=== PATIENT | female | born 1955 | race Caucasian/White ===

== ENCOUNTER 2021-12-30 14:14 | Emergency (ER) | payer BC, MEDICARE ==
[~2021-12-30] VITALS: Ht 157 cm; Wt 108.0 kg
[~2021-12-30 14:14] MED LIST: ANTI-DIARRHEAL PO; CRAN1CAP7 PO; DICY10CA12 PO; GLIM2TAB PO; LOPE2CAP PO; MELO-195 PO; NPH,100V8 SC; OMEP20TA2 PO; OXYC-199 PO; PARO10TA2 PO; PRAV40TA PO; SITA1TAB6 PO; TRIA1TAB5 PO
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
[2021-12-30 15:07] LABS: ALBUMIN 2.4 GM/DL (3.2-4.5)
[2021-12-30 15:08] LABS: POTASSIUM 4.4 MMOL/L (3.6-5.0)
[2021-12-30 15:09] LABS: CALCIUM 7.8 MG/DL (8.5-10.1); HEMOGLOBIN 9.1 g/dL (11.5-16.0); NEUTROPHILS # (AUTO) 0.5 X 10^3 (1.8-7.8)
[2021-12-30 15:10] LABS: TOTAL PROTEIN 5.9 GM/DL (6.4-8.2)
[2021-12-30 15:11] LABS: BASOPHILS % (AUTO) 1 % (0-10); EOSINOPHILS % (AUTO) 3 % (0-10); HEMATOCRIT 30 % (35-52); LYMPHOCYTES # (AUTO) 0.7 X 10^3 (1.0-4.0); LYMPHOCYTES % (AUTO) 41 % (12-44); MEAN CORPUSCULAR HEMOGLOBIN 25 pg (25-34); MEAN CORPUSCULAR HGB CONC 30 g/dL (32-36); MEAN CORPUSCULAR VOLUME 83 fL (80-99); MONOCYTES # (AUTO) 0.4 X 10^3 (0.0-1.0); MONOCYTES % (AUTO) 25 % (0-12); NEUTROPHILS % (AUTO) 30 % (42-75); PLATELET COUNT 48 10^3/uL (130-400); WHITE BLOOD COUNT 1.6 10^3/uL (4.3-11.0)
[2021-12-30 15:12] LABS: BILIRUBIN,TOTAL 1.1 MG/DL (0.1-1.0)
[2021-12-30 15:13] LABS: CREATININE SERUM 0.98 MG/DL (0.60-1.30)
[2021-12-30 15:15] LABS: INR 1.5 (0.8-1.4); PROTHROMBIN TIME PATIENT 18.6 SEC (12.2-14.7)
[2021-12-30 15:44] LABS: BAND NEUTROPHILS 0 %; EOSINOPHILS % (MANUAL) 4 %; LYMPHOCYTES % (MANUAL) 5 %; MONOCYTES % (MANUAL) 15 %; NEUTROPHILS % (MANUAL) 26 %
[2021-12-30 15:45] LABS: ANISOCYTOSIS MARKED; BASOPHILS % (MANUAL) 0 %; ELLIPT/OVALOCYTES SLIGHT; HYPOCHROMASIA SLIGHT
--- NOTE | 2021-12-30 15:55 | Diagnostic Imaging Report ---
INDICATION: Shortness of breath COMPARISON made with 08/03/2013 Heart and mediastinal silhouette are normal in appearance. The lungs are clear. There is no pneumothorax or pleural fluid. There is poor inspiration. IMPRESSION: Poor inspiration with no acute process in the chest. Dictated by: Dictated on workstation # [id number]
[2021-12-30] MEDS ORDERED: POTA-53 PO (17:15)
[2021-12-30 17:32] VITALS: BP 111/49
== END 2021-12-30 17:33 | disposition home or self-care (01) ==
LOC: EDUNIT# 14:14 → ER 14:16
DX: K75.81 Nonalcoholic steatohepatitis (NASH) (principal); D72.819 Decreased white blood cell count, unspecified; D69.6 Thrombocytopenia, unspecified; R60.9 Edema, unspecified; K74.69 Other cirrhosis of liver; E11.9 Type 2 diabetes mellitus without complications; E66.9 Obesity, unspecified; Z87.891 Personal history of nicotine dependence; Z68.41 Body mass index [BMI] 40.0-44.9, adult; Z79.4 Long term (current) use of insulin
CPT/HCPCS: 36415; 71045; 80053; 83880; 85007; 85027; 85610; 85730; 93005

== ENCOUNTER 2022-02-03 17:29 | Emergency (ER) | payer MEDICARE ==
[~2022-02-03] VITALS: Ht 157.5 cm; Wt 108.8 kg
[~2022-02-03 17:29] MED LIST changes: +POTA-53 PO
[2022-02-03] MEDS ORDERED: LIDOCAINE UROJET 2% GEL 10 ML PKG TOP ONE (18:15)
[2022-02-03 18:21] LABS: BASOPHILS % (AUTO) 1 % (0-10); HEMOGLOBIN 9.2 g/dL (11.5-16.0); NEUTROPHILS # (AUTO) 0.5 10^3/uL (1.8-7.8); NEUTROPHILS % (AUTO) 30 % (42-75)
[2022-02-03 18:23] LABS: EOSINOPHILS # (AUTO) 0.1 10^3/uL (0.0-0.3); EOSINOPHILS % (AUTO) 4 % (0-10); HEMATOCRIT 30 % (35-52); LYMPHOCYTES # (AUTO) 0.7 10^3/uL (1.0-4.0); LYMPHOCYTES % (AUTO) 41 % (12-44); MEAN CORPUSCULAR HEMOGLOBIN 26 pg (25-34); MEAN CORPUSCULAR HGB CONC 31 g/dL (32-36); MEAN CORPUSCULAR VOLUME 85 fL (80-99); MEAN PLATELET VOLUME 12.5 fL (9.0-12.2); MONOCYTES # (AUTO) 0.4 10^3/uL (0.0-1.0); MONOCYTES % (AUTO) 23 % (0-12); WHITE BLOOD COUNT 1.6 10^3/uL (4.3-11.0)
[2022-02-03 18:26] LABS: ALBUMIN 2.6 GM/DL (3.2-4.5); PLATELET COUNT 37 10^3/uL (130-400); POTASSIUM 3.7 MMOL/L (3.6-5.0)
[2022-02-03 18:27] LABS: CALCIUM 8.2 MG/DL (8.5-10.1)
[2022-02-03 18:29] LABS: TOTAL PROTEIN 6.5 GM/DL (6.4-8.2)
[2022-02-03 18:30] LABS: BILIRUBIN,TOTAL 2.4 MG/DL (0.1-1.0); FIBRIN DEGRADATION PRODUCTS 1.46 UG/ML (0.00-0.49); INR 1.6 (0.8-1.4); PROTHROMBIN TIME PATIENT 19.4 SEC (12.2-14.7)
[2022-02-03] MEDS ORDERED: ASPIRIN 81 MG CHEW (CHILDREN'S ASA) PO ONE (18:30)
--- NOTE | 2022-02-03 18:30 | Diagnostic Imaging Report ---
INDICATION: Shortness of air. TIME OF EXAM: 6:14 p.m. COMPARISON: Correlation is made with prior chest from 12/30/2021. FINDINGS: Lung volumes are diminished likely owing to poor inspiration. Heart is enlarged. There is central congestion but no overt failure. No infiltrate, effusion, or pneumothorax is seen. IMPRESSION: Cardiomegaly and central congestion. Dictated by: Dictated on workstation # [id number]
[2022-02-03 18:32] LABS: CREATININE SERUM 0.88 MG/DL (0.60-1.30)
[2022-02-03 18:35] LABS: MAGNESIUM 1.4 MG/DL (1.6-2.4)
[2022-02-03 18:43] LABS: BAND NEUTROPHILS 2 %; BASOPHILS % (MANUAL) 2 %; CREATINE KINASE MB 2.3 NG/ML (<6.6); EOSINOPHILS % (MANUAL) 2 %; LYMPHOCYTES % (MANUAL) 28 %; MONOCYTES % (MANUAL) 20 %; NEUTROPHILS % (MANUAL) 38 %
[2022-02-03 18:44] LABS: ERYTHROCYTE SEDIMENTATION RATE 23 MM/HR (0-30); RBC MORPH NORMAL; REACTIVE LYMPHOCYTES 8 %; TOXIC GRANULATION/VACUOLAZATIO 2+
[2022-02-03 18:47] LABS: CLARITY,URINE SL CLOUDY; COLOR,URINE ORANGE; GLUCOSE, URINE (UA) NEGATIVE (NEGATIVE); KETONES,URINE NEGATIVE (NEGATIVE); LEUKOCYTE ESTERASE ,URINE NEGATIVE (NEGATIVE); NITRITE,URINE NEGATIVE (NEGATIVE); PROTEIN,URINE NEGATIVE (NEGATIVE)
[2022-02-03 18:57] LABS: TSH (THYROID ANALYZER) 4.64 UIU/ML (0.35-4.94)
[2022-02-03 18:57] LABS: BACTERIA,URINE FEW /HPF; BILIRUBIN,URINE 1+ (NEGATIVE); GRANULAR CASTS,URINE 0-2 /LPF; WBC,URINE RARE /HPF
--- NOTE | 2022-02-03 19:27 | ED General ---
General Chief Complaint: Respiratory Problems Stated Complaint: SOB Nursing Triage Note: PT TO RM 1 BY WC WITH COMPLAINT OF SOA. STATES HAS HAD SOA X 3 WEEKS AND HAS BEEN TO MULTIPLE DRS. Source of Information: Patient (SOMEWHAT DIFFICULT HISTORIAN AND SPEECH PATTERN IS DIFFICULT TO UNDER STAND.), Old Records (CHARY JOSEPH DO) History of Present Illness Date Seen by Provider: Feb 03, 2022 Time Seen by Provider: 18:02 Initial Comments PT ARRIVES VIA POV FROM HOME WITH C/O SHORTNESS OF BREATH X 3 WEEKS, AND IS GETTING WORSE SHE ALSO STATES THAT SHE HAS FLUID BUILDING UP IN HER STOMACH. NO ABDOMINAL PAIN, JUST FEELS BLOATED, NO NAUSEA/VOMITING. STATES SHE ALWAYS HAS DIARRHEA. ON DIRECT QUESTIONING ABOUT WHETHER SHE HAS CHEST PAIN, SHE STATES SHE ALWAYS HAS CHEST PAIN IN THE CENTER OF HER CHEST--SHE STATES IT IS ALWAYS THERE AND NEVER GOES AWAY AND HAS BEEN THERE FOR A LONG TIME. + COUGH, CLEAR SPUTUM NO FEVER/SWEATS/CHILLS STATES HER LEGS ARE ALWAYS SWOLLEN AND IS NO DIFFERENT TODAY NONE OF THESE SYMPTOMS ARE ANY DIFFERENT TODAY IN ANY WAY. PT STATES SHE HAS LIVER PROBLEMS AND SEES DR. SPEAR AT [facility] IN [place] FOR THIS PROBLEM. SHE DENIES ANY HISTORY OF HEPATITIS, HIV OR ALCOHOL USE. SHE STATES SHE WAS HERE A FEW WEEKS AGO FOR THIS PROBLEM SHE ALSO REPORTS THAT SHE HAS SEEN DR. SPEAR AND HER [facility] [employer] APPRENTICE IN [place] FOR THIS PROBLEM SHE STATES NO CHANGES IN MEDICATIONS SHE DOES STATE SHE HAS BEEN ON AMOXIL RECENTLY FOR A URINARY TRACT INFECTION. SHE ALSO HAS A HISTORY OF HTN AND DIABETES SHE DOES NOT TAKE ANY MEDICATION FOR DIABETES AND DOES NOT CHECK HER BLOOD SUGAR . PT HAS HAD COVID-19 VACCINE X 2. NO FLU VACCINE PT WAS SEEN HERE IN ER 12/30/21 FOR THIS/SIMILAR ISSUE, SENT HOME ONLY OTHER VISIT HERE WAS IN 2013 FOR HER LEFT KNEE REPLACEMENT, AND A SINGLE ER VISIT IN 2007 FOR KNEE PAIN PT WISHES TO BE DNR. PCP: [facility] APPRENTICE IN [place] GI: DR. SPEAR AT [facility] IN [place] (CHARY JOSEPH DO) Allergies and Home Medications Allergies Coded Allergies: Sulfa (Sulfonamide Antibiotics) (Unverified Allergy, Unknown, 08/03/13) cephalexin (Unverified Allergy, Unknown, 08/03/13) ciprofloxacin (Verified Allergy, Unknown, 12/30/21) Patient Home Medication List Home Medication List Reviewed: Yes (CHARY JOSEPH DO) Cranberry Conc/Ascorbic Acid (Cranberry Plus Vitamin C Sftgl) 1 Each Capsule, 1 CAP PO BID, (Reported) Entered as Reported by: BRENDEN CASILLAS on 08/03/13 105 Dicyclomine Hcl (Dicyclomine Hcl) 10 Mg Capsule, 10 MG PO QID, (Reported) Entered as Reported by: BRENDEN CASILLAS on 08/03/13 105 Glimepiride (Glimepiride) 2 Mg Tablet, 2 MG PO BID, (Reported) Entered as Reported by: BRENDEN CASILLAS on 08/03/13 105 Loperamide Hcl (Loperamide Hcl) 2 Mg Capsule, 2 CAP PO DAILY Prescribed by: PENELOPE LAM on 08/09/13 0650 Meloxicam (Meloxicam) 15 Mg Tablet, 15 MG PO DAILY, (Reported) Entered as Reported by: BRENDEN CASILLAS on 08/03/13 1052 Nph, Human Insulin Isophane (HumuLIN N PEN) 300 Units/3 Ml Susp, 8 UNITS SC DAILY, (Reported) Entered as Reported by: BRENDEN CASILLAS on 08/03/13 1053 Nph, Human Insulin Isophane (HumuLIN N PEN) 300 Units/3 Ml Susp, 12 UNITS SC HS, (Reported) Entered as Reported by: CRISTI REYNOSO on 08/09/13 1431 Omeprazole (Omeprazole) 20 Mg Tablet.dr, 20 MG PO DAILY, (Reported) Entered as Reported by: BRENDEN CASILLAS on 08/03/13 1052 Oxycodone Hcl/Acetaminophen (Percocet 5/325 Mg Tablet) 1 Tab Tablet, 1-2 TAB PO Q4H Prescribed by: MAURI NINO on 08/12/13 1119 Paroxetine Hcl (Paroxetine Hcl) 10 Mg Tablet, 10 MG PO DAILY, (Reported) Entered as Reported by: BRENDEN CASILLAS on 08/03/13 105 Potassium Chloride (K-Tab ER) 20 Meq Tablet.er, 20 MEQ PO DAILY Prescribed by: ERIS VANEGAS on 12/30/21 1715 Pravastatin Sodium (Pravachol) 40 Mg Tablet, 40 MG PO HS, (Reported) Entered as Reported by: BRENDEN CASILLAS on 08/03/13 1052 Sitagliptin Phos/Metformin Hcl (Janumet 50-1,000 Mg Tablet) 1 Each Tablet, 1 TAB PO BID WITH MEALS, (Reported) Entered as Reported by: BRENDEN CASILLAS on 08/03/13 1052 Triamterene/Hydrochlorothiazid (Triamterene-Hctz 75-50 Mg Tab) 1 Each Tablet, 1 TAB PO DAILY, (Reported) Entered as Reported by: BRENDEN CASILLAS on 08/03/13 1052 Review of Systems Review of Systems Constitutional: No chills, No diaphoresis, No fever EENTM: no symptoms reported Respiratory: see HPI, cough, dyspnea on exertion, orthopnea, phlegm, short of breath Cardiovascular: see HPI, chest pain, edema; No palpitations, No syncope Gastrointestinal: see HPI, diarrhea; No nausea, No vomiting Genitourinary: no symptoms reported, see HPI Musculoskeletal: see HPI Skin: no symptoms reported Psychiatric/Neurological: No Symptoms Reported (CHARY JOSEPH DO) Past Naqaboe-Vqxrul-Tmqafj Hx Patient Social History Tobacco Use?: Yes Tobacco type used: Cigarettes Smoking Status: Former Smoker Use of E-Cig and/or Vaping dev: No Substance use?: No Alcohol Use?: No Pt feels they are or have been: No (CHARY JOSEPH DO) Immunizations Up To Date Tetanus Booster (TDap): Unknown First/Initial COVID19 Vaccinat: YES Second COVID19 Vaccination Priyank: YES Third COVID19 Vaccination Date: YES (CHARY JOSEPH DO) Past Medical History Surgery/Hospitalization HX: PMH: CHF, LIVER ISSUES, SX: ORTHOPEDIC SX, 1/2 THYROID, L SHOULDER INJURY, GALLBLADDER, TUBAL Asthma Cardiac: Yes Chronic Edema/Swelling, Hypertension Neurological: No Reproductive Disorders: No Genitourinary: Yes Bladder Infection Gastrointestinal: Yes (DUNN; ) Abdominal Hernia, Gastroesophageal Reflux, Liver Disease/Jaundice, Chronic Diarrhea, Cirrhosis Musculoskeletal: Yes Arthritis Endocrine: Yes (MORBID OBESITY) Diabetes, Non-Insulin dep HEENT: Yes (EDENTULOUS) Cancer: No Psychosocial: Yes Anxiety, Depression Integumentary: No Blood Disorders: Yes (PANCYTOPENIA) Adverse Reaction/Blood Tranf: No (CHARY JOSEPH DO) Family Medical History Family history: Cardiovascular disease 19 FATHER 19 MOTHER G8 SISTER Family history: Diabetes mellitus 19 MOTHER Kidney disease 19 MOTHER Seizure disorder G8 BROTHER No Pertinent Family Hx SOCIAL HISTORY: -SMOKED IN THE PAST, QUIT YEARS AGO -DENIES ANY HISTORY OF ALCOHOL USE NOW OR IN THE PAST -DENIES DRUG USE PAST SURGICAL HISTORY: -CHOLECYSTECTOMY -UMBILICAL HERNIA REPAIR -LEFT KNEE REPLACEMENT -LEFT ANKLE SURGERY -LEFT SHOULDER FX/ORIF AND LATER HARDWARE REMOVAL. -THYROID SURGERY FOR GOITER -BILATERAL TUBAL LIGATION (CHARY JOSEPH DO) Physical Exam Vital Signs Vital Signs - First Documented 02/04/22 07:35 O2 Flow Rate 2.00 (DAX SANDERS MD) Vital Signs Capillary Refill : Less Than 3 Seconds (CHARY JOSEPH DO) Height, Weight, BMI Height: 5'4.00" Weight: 255lbs. oz. [id number]; 43.00 BMI Method: General Appearance: Obese (MORBIDLY OBESE; MILD DYSPNEA AT REST--TALKS IN 4-5 WORD SENTENCES. ) HEENT: PERRL/EOMI, Pale Conjunctivae (L), Pale Conjunctivae (R), Scleral Icterus (L) (? VERY SLIGHT??), Scleral Icterus (R) (? VERY SLIGHT ??), Other (EDENTULOUS. ORAL MUCOSA DRY--PT IS MOUTH BREATHER) Neck: Normal Inspection Respiratory: Accessory Muscle Use, Decreased Breath Sounds (IN BASES), Other (MILD DYSPNEA) Cardiovascular: Regular Rate, Rhythm Gastrointestinal: Non Tender, Hernia (VENTRAL HERNIA PRESENT, NON-TENDER), Other (ABDOMEN IS MASSIVE, WITH VERY LARGE PANNUS, UNABLE TO DETERMINE IF ASCITES OR IF ORGANOMEGALY IS PRESENT OR NOT. ) Extremity: Normal Capillary Refill, Normal Range of Motion, Non Tender, No Calf Tenderness, Pedal Edema (TRACE EDEMA TO BILATERAL LOWER LEGS. ) Neurologic/Psychiatric: Alert, Oriented x3, No Motor/Sensory Deficits, Normal Mood/Affect, retail support associate II-XII Norm as Tested Skin: Warm/Dry, Pallor, Petechia (HAS SCATTERED PETECHIAE/BRUISING --MOSTLY TO RIGHT FOREARM. ) (CHARY JOSEPH DO) Progress/Results/Core Measures Suspected Sepsis SIRS Temperature: Pulse: 76 Respiratory Rate: 16 Laboratory Tests 02/03/22 17:45: White Blood Count 1.6L Blood Pressure 139 /51 Mean: 80 Laboratory Tests 02/03/22 17:45: Creatinine 0.88, INR Comment 1.6H, Platelet Count 37*L, Total Bilirubin 2.4H (CHARY JOSEPH DO) Results/Orders Lab Results Laboratory Tests Test 02/03/22 17:45 02/03/22 18:25 02/03/22 18:42 02/04/22 12:46 Range/Units White Blood Count 1.6 L 4.3-11.0 10^3/uL Red Blood Count 3.54 L 3.80-5.11 10^6/uL Hemoglobin 9.2 L 11.5-16.0 g/dL Hematocrit 30 L 35-52 % Mean Corpuscular Volume 85 80-99 fL Mean Corpuscular Hemoglobin 26 25-34 pg Mean Corpuscular Hemoglobin Concent 31 L 32-36 g/dL Red Cell Distribution Width 18.5 H 10.0-14.5 % Platelet Count 37 *L 130-400 10^3/uL Mean Platelet Volume 12.5 H 9.0-12.2 fL Immature Granulocyte % (Auto) 1 % Neutrophils (%) (Auto) 30 L 42-75 % Lymphocytes (%) (Auto) 41 12-44 % Monocytes (%) (Auto) 23 H 0-12 % Eosinophils (%) (Auto) 4 0-10 % Basophils (%) (Auto) 1 0-10 % Neutrophils # (Auto) 0.5 L 1.8-7.8 10^3/uL Lymphocytes # (Auto) 0.7 L 1.0-4.0 10^3/uL Monocytes # (Auto) 0.4 0.0-1.0 10^3/uL Eosinophils # (Auto) 0.1 0.0-0.3 10^3/uL Basophils # (Auto) 0.0 0.0-0.1 10^3/uL Immature Granulocyte # (Auto) 0.0 0.0-0.1 10^3/uL Neutrophils % (Manual) 38 % Lymphocytes % (Manual) 28 % Monocytes % (Manual) 20 % Eosinophils % (Manual) 2 % Basophils % (Manual) 2 % Band Neutrophils 2 % Reactive Lymphocytes 8 % Toxic Granulation 2+ Percent Immature Platelet Fraction 9.8 H 0.0-7.6 % Blood Morphology Comment NORMAL Erythrocyte Sedimentation Rate 23 0-30 MM/HR Prothrombin Time 19.4 H 12.2-14.7 SEC INR Comment 1.6 H 0.8-1.4 Activated Partial Thromboplast Time 41 H 24-35 SEC D-Dimer 1.46 H 0.00-0.49 UG/ML Sodium Level 137 135-145 MMOL/L Potassium Level 3.7 3.6-5.0 MMOL/L Chloride Level 103 98-107 MMOL/L Carbon Dioxide Level 25 21-32 MMOL/L Anion Gap 9 5-14 MMOL/L Blood Urea Nitrogen 19 H 7-18 MG/DL Creatinine 0.88 0.60-1.30 MG/DL Estimat Glomerular Filtration Rate 72 BUN/Creatinine Ratio 22 Glucose Level 93 70-105 MG/DL Calcium Level 8.2 L 8.5-10.1 MG/DL Corrected Calcium 9.3 8.5-10.1 MG/DL Magnesium Level 1.4 L 1.6-2.4 MG/DL Total Bilirubin 2.4 H 0.1-1.0 MG/DL Aspartate Amino Transf (AST/SGOT) 25 5-34 U/L Alanine Aminotransferase (ALT/SGPT) 11 0-55 U/L Alkaline Phosphatase 151 H 40-136 U/L Ammonia 40 H 11-32 UMOL/L Total Creatine Kinase 42 29-168 U/L Creatine Kinase MB 2.3 <6.6 NG/ML Troponin I 0.047 H < 0.028 <0.028 NG/ML C-Reactive Protein High Sensitivity 1.69 H 0.00-0.50 MG/DL B-Type Natriuretic Peptide 365.5 H <100.0 PG/ML Total Protein 6.5 6.4-8.2 GM/DL Albumin 2.6 L 3.2-4.5 GM/DL Amylase Level 18 L 25-125 U/L Lipase 36 8-78 U/L TSH Labette Testing 4.64 0.35-4.94 UIU/ML Influenza Type A (RT-PCR) Not Detected Not Detecte Influenza Type B (RT-PCR) Not Detected Not Detecte SARS-CoV-2 RNA (RT-PCR) Not Detected Not Detecte Urine Color ORANGE Urine Clarity SL CLOUDY Urine pH 6.0 5-[address] [place] >=1.030 1.016-1.022 Urine Protein NEGATIVE NEGATIVE Urine Glucose (UA) NEGATIVE NEGATIVE Urine Ketones NEGATIVE NEGATIVE Urine Nitrite NEGATIVE NEGATIVE Urine Bilirubin 1+ H NEGATIVE Urine Urobilinogen 1.0 < = 1.0 MG/DL Urine Leukocyte Esterase NEGATIVE NEGATIVE Urine RBC (Auto) NEGATIVE NEGATIVE Urine RBC 2-5 H /HPF Urine WBC RARE /HPF Urine Squamous Epithelial Cells 5-10 /HPF Urine Crystals NONE /LPF Urine Bacteria FEW H /HPF Urine Casts PRESENT /LPF Urine Granular Casts 0-2 H /LPF Urine Mucus NEGATIVE /LPF Urine Culture Indicated YES (DAX SANDERS MD) Micro Results Microbiology 02/03/22 Urine Culture - Preliminary, Resulted Culture In Progress (DAX SANDERS MD) My Orders Orders - DAX SANDERS MD Albuterol Pre-Mix Nebs (Rt) (Proventil (02/04/22 07:15) Svn Small Volume Nebulizer (02/04/22 07:15) Troponin I Omer (02/04/22 12:30) Magnesium 1 Gm/100 Ml Ivpb (Magnesium Hernandez (02/04/22 12:30) (DAX SANDERS MD) Medications Given in ED Current Medications Medications Dose Ordered Sig/Susana Route Start Time Stop Time Status Last Admin Dose Admin Magnesium Sulfate/ Dextrose 100 ml @ 100 mls/hr ONCE ONCE IV 02/04/22 12:30 02/04/22 13:29 DC 02/04/22 13:04 100 MLS/HR (DAX SANDERS MD) Vital Signs/I&O 02/03/22 02/03/22 02/04/22 17:35 17:35 07:35 Temp 35.2 Pulse 76 Resp 16 B/P (MAP) 139/51 (80) Pulse Ox 92 100 O2 Delivery Room Air Room Air Nasal Cannula O2 Flow Rate 2.00 (DAX SANDERS MD) Vital Signs/I&O Capillary Refill : Less Than 3 Seconds (CHARY JOSEPH DO) Blood Pressure Mean: 80 Progress Note : Progress Note PT PLACED ON O2 FOR DYSPNEA, DESPITE O2 SATS IN UPPER 90'S GIVEN LASIX 0230--PT IS SLEEPING, EASILY AWAKENS, IS ALERT AND ORIENTED X 4, VERY TALKATIVE. PT HAS NO COMPLAINTS AT THIS TIME. VITALS STABLE. 0400--PT SLEEPING, EASILY AWAKENS, IS ALERT AND ORIENTED X 4, VITALS STABLE, PT HAS NO COMPLAINTS. 0500--PT SLEEPING, EASILY AWAKENS, IS ALERT AND ORIENTED X 4, VITALS STABLE, PT HAS NO COMPLAINTS 0600--CARE TURNED OVER TO DR. SANDERS, TRANSPORTATION IS PENDING, PT HAS ALREADY BEEN ACCEPTED FOR ADMIT AT [facility]. (CHARY JOSEPH DO) Progress Note #1: Time: 07:17 Progress Note I assumed care of this patient at shift change. Vital signs are stable and patient is comfortable at this time and resting in bed. She was reexamined and found to be wheezing with prolonged expiratory phase. She does use an albuterol inhaler at home. An albuterol treatment has been ordered. We are presently awaiting transfer services. Patient has been accepted at [facility] and has a bed assignment. Progress Note #2: Time: 12:30 Progress Note Transfer was greatly delayed due to no available EMS transport. Magnesium was replaced and troponin was repeated in the meantime. Troponin normalized. (DAX SANDERS MD) ECG Initial ECG Impression Date: Feb 03, 2022 Initial ECG Impression Time: 18:24 Initial ECG Rate: 68 Initial ECG Rhythm: Normal Sinus Initial ECG Impression: Nonspecific Changes Initial ECG Comparisson: No Previous ECG Available (CHARY JOSEPH DO) Diagnostic Imaging Comments CXR--PER RADIOLOGIST REPORT AT 1926 COMPARISON: Correlation is made with prior chest from 12/30/2021. FINDINGS: Lung volumes are diminished likely owing to poor inspiration. Heart is enlarged. There is central congestion but no overt failure. No infiltrate, effusion, or pneumothorax is seen. IMPRESSION: Cardiomegaly and central congestion. Reviewed: Reviewed by Me (CAHRY JOSEPH DO) Departure Communication (Admissions) 1927--SPOKE WITH DR. BARLOW, HOSPITALIST, HE ADVISES TRANSFER TO HIGHER LEVEL OF CARE WITH GI SPECIALISTS AVAILABLE. 1944--PT AND DO NOT WANT TO BE ADMITTED OR TRANSFERRED. ADVISED OF NEED FOR HOSPITALIZATION AND FURTHER CARE OF HER CONDITION. 2009--PATIENT AND NOW AGREE TO HOSPITALIZATION AND ARE AGREEABLE TO TRANSFER TO [facility], THAT IS WHERE HER SPECIALIST IS. 2010-CONTACTED [facility]. THEY WILL CALL BACK 2029--[facility] CALLED BACK. [facility] HOSPITALIST. 2105--SPOKE WITH DR. RICHMOND, HOSPITALIST, HE ACCEPTS PT FOR ADMIT/TRANSFER. THERE CURRENTLY IS NO LOCAL EMS GROUND TRANSPORT AVAILABLE TONIGHT. OTHER EMS SERVICES IN THE AREA WERE CONTACTED WELL, AND NONE ARE AVAILABLE FOR TRANSPORT TONIGHT. CURRENTLY NO AIR TRANSPORT AVAILABLE DUE TO WEATHER. [facility] WAS INFORMED OF THIS, AND WILL KEEP THEM UPDATED WHEN TRANSPORTATION IS AVAILABLE. PT AND FAMILY HAVE BEEN UPDATED ON THIS WELL, AND ARE AGREEABLE TO THIS PLAN. LOCAL EMS HAS BEEN ADVISED OF NEED FOR TRANSFER FIRST THING IN THE MORNING. (CHARY JOSEPH DO) Impression Primary Impression: Liver failure Additional Impressions: Liver cirrhosis secondary to nonalcoholic steatohepatitis (DUNN) Ascites CHF (congestive heart failure) Morbid obesity Hypomagnesemia Disposition: 02 XFER SHT-TRM HOSP Condition: Stable Transfer Transfer Reason: Exceeds level of care Transfer Facility: [facility] Method of Transfer: EMS (CHARY JOSEPH DO) Transfer Time: 14:10 (DAX SANDERS MD) Departure-Patient Inst. Referrals: NO,LOCAL PHYSICIAN (PCP/Family) Primary Care Physician CHARY JOSEPH DO Feb 03, 2022 19:27 DAX SANDERS MD Feb 04, 2022 07:23
[2022-02-03] MEDS ORDERED: FUROSEMIDE 40 MG/4 ML INJ (LASIX) IVP ONE (20:15)
[2022-02-04] MEDS ORDERED: RT-ALBUTEROL SULF 2.5 MG/3 ML PRE-MIX VIAL INH STA (07:15)
[2022-02-04] MEDS ORDERED: MAGNESIUM 1 GM/100 ML IVPB 100 ML IV ONE (12:30)
[2022-02-04 14:10] VITALS: BP 131/82
== END 2022-02-04 14:10 | disposition short-term general hospital (02) ==
LOC: EDUNIT# 17:29 → ER 17:33
DX: K72.90 Hepatic failure, unspecified without coma (principal); K75.81 Nonalcoholic steatohepatitis (NASH); I11.0 Hypertensive heart disease with heart failure; I50.9 Heart failure, unspecified; E83.42 Hypomagnesemia; R18.8 Other ascites; E66.01 Morbid (severe) obesity due to excess calories; F17.210 Nicotine dependence, cigarettes, uncomplicated; Z68.41 Body mass index [BMI] 40.0-44.9, adult; Z87.19 Personal history of other diseases of the digestive system; Z20.822 Contact with and (suspected) exposure to COVID-19
CPT/HCPCS: 36415; 51702; 71045; 80053; 81000; 82140; 82150; 82550; 82553; 83690; 83735; 83880; 84443; 84484; 85007; 85027; 85379; 85610; 85652; 85730; 86141; 87077; 87088; 87636; 93005; 93041; 94640

== ENCOUNTER → 2022-02-24 | Outpatient (CLI) | payer MEDICARE ==
[~2022-02-24] MED LIST changes: +CATHETER FLUSH 10 ML SYR IVP PRN; +REGADENOSON 0.4 MG/5 ML SYR (LEXISCAN) IV ONE
[2022-02-24 09:59] VITALS: BP 117/63
[2022-02-24 10:00] VITALS: BP 114/50
--- NOTE | 2022-02-26 01:11 | STRESS TEST ---
DATE OF SERVICE: 02/24/2022 RESTING AND POST REGADENOSON TECHNETIUM-99M TETROFOSMIN SPECT CT IMAGING ORDERING PHYSICIAN: Dr. Bhagat. CLINICAL DIAGNOSIS: Coronary artery disease. Baseline images were carried out after injection of 10.11 mCi of technetium-99m Tetrofosmin. This was followed by 0.4 mg regadenoson and a 30.1 mCi of technetium-99m Tetrofosmin for stress imaging. The electrocardiogram showed sinus rhythm at baseline. The electrocardiogram did not change significantly with regadenoson infusion. The patient tolerated the procedure well. Review of images at rest and following stress did not indicate any distinct perfusion defect consistent with significant myocardial ischemia or infarction. Gated images show normal global left ventricular systolic function with normal regional wall motion. Left ventricular ejection fraction is calculated to be 78%. The study is technically difficult because of considerable patient motion during rest image acquisition. The report is based on the stress images that did not show any significant ischemia or infarction and that showed normal regional wall motion. CONCLUSION: 1. No evidence of significant myocardial ischemia or infarction on this study. 2. Normal regional wall motion. 3. Normal global left ventricular systolic function with a calculated ejection fraction of 78%. Job ID: [id number] DocumentID: [id number] Dictated Date: 02/25/2022 17:18:41 In Flight Technician Date: 02/26/2022 01:07:00 Dictated By: MELIDA BHAGAT MD; CHARLENE; FACP; FACC;
== END ==
LOC: CARD 07:10
PROVIDERS: ATTEND Internal Medicine Cardiovascular Disease
DX: I25.10 Atherosclerotic heart disease of native coronary artery without angina pectoris (principal)
CPT/HCPCS: 78452; 93017; A9502